=== PATIENT | male | born 2005 | race Two or more races ===

== ENCOUNTER 2024-08-29 05:25 | Emergency (ER) | payer OTHER ==
[~2024-08-29] VITALS: Ht 177.8 cm; Wt 77.3 kg
[2024-08-29 06:03] VITALS: BP 111/58; PULSE 72; RESP 20; TEMP 98.2; O2SAT 97
[2024-08-29] MEDS ORDERED: ALBU18HF12 IH (06:06)
== END 2024-08-29 06:16 ==
LOC: EMS 05:31
DX: Z02.89 Encounter for other administrative examinations (principal); F12.90 Cannabis use, unspecified, uncomplicated; J45.909 Unspecified asthma, uncomplicated; F10.90 Alcohol use, unspecified, uncomplicated; Z91.018 Allergy to other foods; Z91.010 Allergy to peanuts; Y90.9 Presence of alcohol in blood, level not specified; V43.52XA Car driver injured in collision with other type car in traffic accident, initial encounter; Y93.89 Activity, other specified; Y92.89 Other specified places as the place of occurrence of the external cause; Y99.8 Other external cause status
CPT/HCPCS: 99283; Z7502